=== PATIENT | female | born 1965 | race Caucasian/White ===

== ENCOUNTER 2024-09-16 12:53 | Outpatient (AMB) | payer MEDICAID, SELFPAY ==
--- NOTE | 2024-09-16 12:57 | MHC.OFFVIS ---
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 Reports she drops a lot of things and even writing is painful. She reports numbness and tingling in her right hand 1st, 2nd, 3rd, and 4th digits but states this is not as often as the left. Reports finger locking and cramping in the left hand. Has tried braces but found no relief. Hx of injections on [facility] in the volar aspect of the left wrist. Has tried Tylenol and ibuprofen with no relief. She says her muscle relaxers help her temporarily. Denies any prior injuries the hands. hx of surgery in her left 5th digits for tendons 2015. She was going to therapy for this but then moved to [place]. She returned for treatment due to them not helping her much. 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 Of note, the patient states that she does have a history of flexor tendon repair in 2016, and states that she has not been able to fully straight in her left small finger since then. Patient reports that this numbness and tingling is in all digits of the bilateral hands. Patient had an EMG and nerve conduction study performed years ago, but is not able to bring up the results at this time. Patient does report that she does occasionally have shooting pains that radiate from her elbow down to her hand. No other acute complaints or concerns at this time. [facility] Social History (Updated 09/16/24 @ 13:00 by WILLOW Clark) Alcohol intake: current Alcohol intake frequency: holidays/special occasions only Patient Tobacco Use Status: Current everyday Tobacco user Tobacco use type: Cigarette Current occupational status: unemployed Current occupation: left hand dominant Physical Exam Vital Signs: BMI result Body Mass Index 23.6 Extrem Other: Neuro: Decreased sensation in all digits of the left hand at this time Patient reports normal sensation of the tips of all digits of the right hand at this time No thenar or intrinsic wasting. Good APB muscle firing We can finger cross on the left when compared to the right Vascular: Capillary refill brisk. ROM: Patient can make a fist Patient is unable to actively extend the left small finger at the PIP joint, with a resting extensor lag of approximately 30 degrees Patient is able to be passively extended fully without difficulty Skin: No lacerations or abrasions noted. General: No ecchymosis. No erythema or evidence of infection. Assessment & Plan Assessment & Plan (1) Numbness and tingling in both hands: Code(s): R20.0 - Anesthesia of skin; R20.2 - Paresthesia of skin Category: Medical (2) Flexion contracture of joint of hand: Code(s): M24.549 - Contracture, unspecified hand Category: Medical Plan 1. Numbness and tingling of bilateral hands Symptoms constant, daily, worse at night Patient was referred for EMG and nerve conduction study to assess the health of the nerves of bilateral upper extremities Patient will follow-up after EMG and nerve conduction study for results review and discussion of further treatment options if indicated Patient was amenable to this plan 2. Extensor lag of left small finger status post flexor tendon repair DOS 2015 Patient was referred to occupational therapy for range of motion and strengthening of bilateral hands, particularly the left small finger Patient was advised that if 2-3 months after starting occupational therapy she notices no improvement, she can call for reassessment of her left small finger Patient is amenable to this Patient will follow-up as needed with any acute concerns Orders: Orders NE electromyogram (EMG) Today R20.0 - Anesthesia of skin, R20.2 - Paresthesia of skin NE nerve conduction velocity Today R20.0 - Anesthesia of skin, R20.2 - Paresthesia of skin OT Evaluation and Treatment Today M24.549 - Contracture, unspecified hand Coding Level of Care Code New Pt Level 3 (44224) Diagnoses Numbness and tingling in both hands R20.0; R20.2 Flexion contracture of joint of hand M24.775
[2024-09-16 12:58] VITALS: BMI 23.6
== END 2024-09-16 13:21 | disposition home or self-care (01) ==
LOC: HO.HOS 12:53
PROVIDERS: PCP Physician Assistant Medical
DX: R20.0 Anesthesia of skin (principal); R20.2 Paresthesia of skin; M24.549 Contracture, unspecified hand
CPT/HCPCS: 99203

== ENCOUNTER → 2024-09-16 12:53 | Outpatient (BNVA) | payer MEDICAID, SELFPAY | PROVIDERS: PCP Physician Assistant Medical | DX: M24.549 Contracture, unspecified hand (principal); R20.0 Anesthesia of skin; R20.2 Paresthesia of skin | CPT/HCPCS: 99212 ==

== ENCOUNTER 2024-11-07 13:32 | Outpatient (RCR) | payer MEDICAID, SELFPAY ==
--- NOTE | 2024-10-08 10:08 | MHC.OT.OEV ---
[address] [phone] F: [phone] Occupational Therapy Evaluation Patient Name: Sonali Hernandez Diagnosis: (L)SF flexion contracture, (B)CTS Date of Onset: Date of Surgery: Attending Provider: Dung Dao Prescribed Treatment: MD Follow Up Appointment: History of Current Condition: Patient is a 59 year old left hand dominate female with PMHx of DMII and flexion tendon repair (2015) who was referred to skilled OT for pain and numbness in the hands. Patient stated her main concern is the SF contracture. After her repair she moved to [place] where it was not addressed. Her daughter was present during the evaluation who interpret for the patient. 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 She stated she lives with daughter and PLOF was (I)ADLS/IADLS. She is currently retired. She enjoys cooking. She reported she has difficulty with cooking/cleaning, holding items as she drops items, donning pants, opening jars, and lifting a gallon of milk. She has numbness/tingling at morning and night and notices swelling of her hands at times. She has a brace for nigh time use but she does not use it all the time as it bothers her. She stated it is a throbbing pain that is a 7/10 with movement, no pain at rest but her hands feel numb. Significant Medical History: DM II Precautions/Contraindications: Patient Goals: Hand Dominance: Left Observations: QuickDASH Score: Prior Level of Function and Occupation Self Care, Employment, Leisure: (I)ADLs/ IADLS retired enjoys cooking Living Situation, Family and/or Social Support: Lives with daughter Current Level of Function and Occupation Self Care, Employment, Leisure: min (A)ADLs/IADLs Sleep: Has difficulty sleeping due to pain Driving: Does not drive Vision: Balance: Pain Assessment Pain Score: 7 Pain Scale Used: Numeric (0 - 10) Pain Location and Description: Throbbing pain 7/10 during movement 0/10 at rest Aggravating Factors: Lifting, pushing, pulling Alleviating Factors: Skin and Soft Tissue Assessment Skin and Soft Tissue: Comments: skin intact Nerve assessment Ulnar Nerve: Median Nerve: Radial Nerve: Comments: Sensory Assessment Temperature: B/L Impaired Light Touch: B/L Impaired Proprioception: Vibration: Comments: [place] Jameel Monofilament= Loss of protective sensation Edema Assessment Upper Extremity: Lower Extremity: Comments: Dexterity Assessment Dexterity: Comments: Special Tests Comments: Phalen's Test - unable to perform AROM(PROM) Strength Cervical Cervical Flexion: Cervical Extension: Cervical Lateral Flexion: Cervical Rotation: Comments: Shoulder Flexion: Extension: Abduction: Internal Rotation: External Rotation: Comments: WFL Flexion: Extension: Abduction: Internal Rotation: External Rotation: Comments: Elbow Flexion: Extension: Pronation: Supination: Comments: WFL Flexion: Extension: Pronation: Supination: Comments: Wrist Flexion: (R)89 (L)80 Extension: (R)45 (L)55 Ulnar Deviation: (R)15 (L)11 Radial Deviation: (R)31 (L)30 Comments: Flexion: Extension: Ulnar Deviation: Radial Deviation: Comments: Thumb Thumb CMC Flexion: Thumb MCP Flexion: Thumb IP Flexion: Radial Abduction: Palmar Abduction: [place] (Kapandji 0-10): Comments: Digits Index MCP: PIP: DIP: Long MCP: PIP: DIP: Ring MCP: PIP: DIP: Small MCP: (L)60* flexion passive, hyperextended PIP: (L)51/71 flexion, 45/0 extension DIP: (L)WFL Comments: Gross Grasp: (R)23.5lbs., (L)17.5lbs. Lateral Pinch: (R)6 (L)4 Two-Point Pinch: (R)2 (L)1 Three-Jaw Shola: (R)3 (L)3 Comments: Patient Education Primary Language: Resident Care Manager Rn Required: Yes Current Knowledge: Teaching Method: Education Needs Identified on Evaluation: How did patient/family demonstrate learning? Barriers to Learning: Readiness for Learning: Who was educated? Comments: Daughter aerial photograph interpreter Plan of Care Assessment: Based on initial OT evaluation patient presents with pain, numbness/tingling, impaired ROM, impaired strength, and impaired sensation. Provocative testing was administered however patient was unable to perform it as she was unable to feel sensation. Currently as signs/ symptoms present it is evident that patient has CTS (B'ly). Quick DASH score= 90.0% indicating patients perception of UE impairment during self care tasks. Due to the documented impairments it is recommended patient receive skilled OT intervention in order to achieve her maximal potential and her PLOF of (I) during self care tasks. Per patient discussion the SF contracture will be addressed first and CTS will be addressed second. Thank you for your referral. STG Duration: 2 weeks Short Term Goals: Patient will tolerate at least 8hours of wearing finger orthotic for improved ROM Patient will increase (L)SF PIP extension by 5* Patient will increase (L)SF MCP flexion by 5* Patient will report decreased pain in (L)hand from 7/10 to 5/10 pain Patient will have decreased Quick DASH score by 20% indicating overall improved UE function LTG Duration: 4 weeks [facility] Goals: Patient will report 0/10 pain Patient will increase SF ROM by at least 10* Patient will be (I) with HEP Patient will have decreased Quick DASH score by 50% indicating overall improved UE function Frequency and Duration: The patient will be seen 2x a week for 4weeks Treatment Plan: Therapeutic Exercise Therapeutic Activity Home Exercise Program Splinting Patient Education Edema Control ADL Training Ultrasound NMES Iontophoresis Paraffin Fluidotherapy MHP Cold Packs Joint Mobilization Soft Tissue Mobilization Kinesiotaping Other (see comments) Skilled OT eval and treat Electronically Signed By: BRITTANY Savage/Radha, CLT Reviewed/agree with student documentation: Therapist: Please sign and return to therapist, Thank you for your referral.
--- NOTE | 2025-02-21 15:13 | MHC.OT.DC ---
[address] [phone] F: [phone] Occupational Therapy Discharge Note Patient Name: Sonali Hernandez Provider: Dung Dao Diagnosis: (L)SF flexion contracture, (B)CTS Date of Surgery: Date of Evaluation: 10/07/24 Date of Discharge: Treatments to Date: 3 Cancellations to Date: No Shows to Date: Discharge Status: Visit Non-compliance Discharge Summary: Patient did not return to therapy. Electronically Signed By: BRITTANY Savage/Radha, CLT Reviewed/agree with student documentation: Therapist: Please Sign and return to therapist, thank you for your referral.
== END 2025-02-21 15:13 | disposition home or self-care (01) ==
LOC: HO.OT 13:32
PROVIDERS: PCP Physician Assistant Medical
DX: M24.549 Contracture, unspecified hand (principal)
CPT/HCPCS: 97110; 97140; 97166; 97535

== ENCOUNTER 2024-11-14 13:55 | Outpatient (REF) | payer MEDICAID, SELFPAY ==
--- NOTE | 2024-11-14 14:00 | EMG_ITS ---
Chief complaint: Chronic hand numbness. History of left CTR many years ago. Reason for referral: Evaluate for Carpal Tunnel Syndrome Referred by: Dung PENG Procedure done: Bilateral upper extremities NCS/EMG Precautions and/or limitations: None The limb temperature was monitored continuously and remained between 32-36 degrees C during the performance of the NCS. Nerve Conduction Studies Anti Sensory Summary Table ?Stim Site NR Onset (ms) Norm Onset (ms) Peak (ms) Norm Peak (ms) O-P Amp (?V) Norm O-P Amp Site1 Site2 Delta-0 (ms) Dist (cm) Michael (m/s) Norm Michael (m/s) Left Median Anti Sensory (2nd Digit) Wrist ? 2.9 3.6 <3.6 57.3 >10 Wrist 2nd Digit 2.9 14.0 48 Right Median Anti Sensory (2nd Digit) Wrist ? 3.0 3.9 <3.6 55.9 >10 Wrist 2nd Digit 3.0 14.0 47 Left Radial Anti Sensory (Thumb) Forearm ? 2.3 2.5 <3.1 14.2 Forearm Thumb 2.3 0.0 Left Ulnar Anti Sensory (5th Digit) Wrist ? 3.1 3.9 <3.7 26.7 >15.0 Wrist 5th Digit 3.1 14.0 45 Right Ulnar Anti Sensory (5th Digit) Wrist ? 3.0 3.7 <3.7 41.1 >15.0 Wrist 5th Digit 3.0 14.0 47 Motor Summary Table ?Stim Site NR Onset (ms) Norm Onset (ms) O-P Amp (mV) Norm O-P Amp iAmp (mV) Amp (1st) (%) Site1 Site2 Delta-0 (ms) Dist (cm) Michael (m/s) Norm Michael (m/s) Left Median Motor (Abd Poll Brev) Wrist ? 3.9 <3.9 7.0 >4.5 8.7 100.0 Elbow Wrist 3.7 17.0 46 >45 Elbow ? 7.6 6.8 8.2 97.1 Right Median Motor (Abd Poll Brev) Wrist ? 3.9 <3.9 8.8 >4.5 10.4 100.0 Elbow Wrist 3.7 18.0 49 >45 Elbow ? 7.6 8.7 10.3 98.9 Left Ulnar Motor (Abd Dig Minimi) Wrist ? 3.0 <3.0 8.5 >5 10.8 100.0 B Elbow Wrist 3.3 18.0 55 >45 B Elbow ? 6.3 7.0 9.4 82.4 A Elbow B Elbow 1.6 10.0 62 >45 A Elbow ? 7.9 6.6 9.2 77.6 Right Ulnar Motor (Abd Dig Minimi) Wrist ? 3.0 <3.0 10.0 >5 12.6 100.0 B Elbow Wrist 3.3 18.0 55 >45 B Elbow ? 6.3 9.9 12.5 99.0 A Elbow B Elbow 1.5 10.0 67 >45 A Elbow ? 7.8 9.3 12.1 93.0 EMG ?Side Muscle Nerve Root Ins Act Fibs Psw Amp Dur Poly Recrt Int Pat Comment Right 1stDorInt Ulnar C8-T1 Nml Nml Nml Nml Nml 0 Nml Complete Right FlexCarRad Median C6-7 Nml Nml Nml Nml Nml 0 Nml Complete Right Biceps Musculocut C5-6 Nml Nml Nml Nml Nml 0 Nml Complete Right Triceps Radial C6-7-8 Nml Nml Nml Nml Nml 0 Nml Complete Right Deltoid Axillary C5-6 Nml Nml Nml Nml Nml 0 Nml Complete Left 1stDorInt Ulnar C8-T1 Nml Nml Nml Nml Nml 0 Nml Complete Left FlexCarRad Median C6-7 Nml Nml Nml Nml Nml 0 Nml Complete Left Biceps Musculocut C5-6 Nml Nml Nml Nml Nml 0 Nml Complete Left Triceps Radial C6-7-8 Nml Nml Nml Nml Nml 0 Nml Complete Left Deltoid Axillary C5-6 Nml Nml Nml Nml Nml 0 Nml Complete FINDINGS: All motor and sensory nerves tested showed normal latencies, amplitudes and conduction velocities. Concentric needle EMG was performed in selected muscles of the bilateral upper extremities. Study did not reveal signs of electric abnormalities as shown in the table above. IMPRESSION: 1. This is a normal study. 2. There is no electrodiagnostic evidence for median neuropathy, ulnar neuropathy, brachial plexopathy, or cervical radiculopathy. Thank you for your kind referral. Nancie Marie MD, JUAN RAMON Board Certified, [place] Board of Physical Medicine and Rehabilitation (ABPMR) Board Certified, [place] Board of Electrodiagnostic Medicine (ABEM) CODIN [phone] NATALIE
== END 2024-11-14 13:56 | disposition home or self-care (01) ==
LOC: HO.NEURO 13:55
PROVIDERS: PCP Physician Assistant Medical
DX: R20.0 Anesthesia of skin (principal); R20.2 Paresthesia of skin
CPT/HCPCS: 95886; 95911

== ENCOUNTER → 2024-11-14 14:00 | Outpatient (BNV) | payer MEDICAID, SELFPAY | PROVIDERS: PCP Physician Assistant Medical; Visit Provider Physical Medicine & Rehabilitation | DX: R20.0 Anesthesia of skin (principal); R20.2 Paresthesia of skin | CPT/HCPCS: 95886; 95911 ==

== ENCOUNTER 2024-12-18 14:05 | Outpatient (AMB) | payer MEDICAID, SELFPAY ==
--- NOTE | 2024-12-18 14:06 | MHC.OFFVIS ---
Intake Visit Reasons: Tel- B/L UE EMG review pls call [phone] Intake Note: Sonali is a 59 year old left hand dominant female who presents today via telephone visit for her bilateral hand EMG review. Allergies No Known Allergies Allergy (Verified 12/18/24 14:11) HPI HPI Tel- B/L UE EMG review pls call [phone]: Details: pavel is a 59 year old left hand dominant female who presents today via telephone visit for her bilateral hand EMG review. PFSH Social History Alcohol intake: current Alcohol intake frequency: holidays/special occasions only Patient Tobacco Use Status: Current everyday Tobacco user Tobacco use type: Cigarette Current occupational status: unemployed Current occupation: left hand dominant Review of Systems Const All systems reviewed & are unremarkable except as noted in HPI and below Telehealth Telehealth Telehealth Platform: Telephone Location of provider rendering services: practice address Location of patient: address on file Patient Identification confirmed using: Name, : Yes Telehealth method: voice only Patient verbally consented to treatment: Yes Patient verbally consented to billing insurance company: Yes Patient informed of any privacy concerns related to visit: Yes Minutes spent on Phone/Video with Pt.: 10 Assessment & Plan Assessment & Plan (1) Numbness and tingling in both hands: Code(s): R20.0 - Anesthesia of skin; R20.2 - Paresthesia of skin Category: Medical Plan 1. Numbness and tingling of both hands Intermittent, daily, worse at night EMG negative Patient informed that there is no intervention indicated with a negative EMG Patient can f/u in 6 mos if she is still experiencing numbness and tingling for repeat EMG Patient is amenable to this plan Coding Level of Care Code Tele New Pt Level 3 (26967) Diagnoses Numbness and tingling in both hands R20.0; R20.2
--- OUTSIDE RECORDS SUMMARY | 2024-12-18 15:30 | XMS_ITS | Clinical Summary ---
Author Organization [facility] Address [address] [place] [address] Care Team Providers Care Escalator Operator Name Role Phone Alice Gan PA-C Primary Care Provider Source Comments PLEASE NOTE, if this patient is a minor, it may be UNLAWFUL to discuss sensitive information that is contained in these records (such as FAMILY PLANNING, MENTAL HEALTH or SUBSTANCE ABUSE) with the minor patient's parent or other person without the patient's specific authorization.[facility] Allergies No known active allergies Medications arm brace (WRIST BRACE)Indication s:Acute carpal tunnel syndrome of left wrist Left hand carpel tunnel - wrist brace to wear daily 1 Each 9 Active omeprazole (PRILOSEC) [address] capsuleIndicatio ns:Gastroesophag eal reflux disease, unspecified whether esophagitis present TAKE 1 CAPSULE BY MOUTH EVERY MORNING BEFORE BREAKFAST DO NOT CRUSH OR CHEW. 90 Capsule 1 4 Active metroNIDAZOLE (FLAGYL) 500 mg tabletIndication s:BV (bacterial vaginosis) Take 1 Tablet by mouth 2 (two) times daily Avoid alcohol consumption during treatment and 48 hours post treatment. 14 Tablet 4 Active cyclobenzaprine (FLEXERIL) 10 mg tabletIndication s:Back spasm Take 1 Tablet by mouth 3 (three) times daily as needed for muscle spasms 60 Tablet 4 Active ibuprofen 600 mg tabletIndication s:Back spasm Take 1 Tablet by mouth 4 (four) times daily as needed for pain 60 Tablet 4 Active metFORMIN (GLUCOPHAGE) 500 mg tabletIndication s:Prediabetes Take 1 Tablet by mouth once daily with breakfast 90 Tablet 1 4 Active Active Problems Problem Noted Date Diagnosed Date Tubular adenoma of colon 07/28/2016 Overview (02/13/2024): repeat screening colonoscopy in 2020 Prediabetes 04/21/2016 Overview (05/25/2016): No showed Rose May 2016 Dyslipidemia 04/08/2016 Overview (04/08/2016): Lab Results Component Value Date TRIGLYC 207* 04/08/2016 CHOL 208* 04/08/2016 HDL 57 04/08/2016 LDL 110* 04/08/2016 Diet ed only- no meds for now Hepatitis B antibody positive 04/08/2016 Liver cyst 04/07/2016 GERD (gastroesophageal reflux disease) 6 Overview (04/07/2016): ppi prn- did not re order this upon transfer Overweight 04/07/2016 Overview (05/25/2016): No showed rose May 2016 Menopause 04/07/2016 Overview (04/07/2016): Age 48 per pt Carpal tunnel syndrome 09/02/2015 Overview (04/07/2016): neos repaired 2-3 yr ago- had EMG sched per yvon notes H/O mammogram Overview (04/07/2016): sage birads -2 09/28/15 Pap smear for cervical cancer screening Overview (04/07/2016): 09/02/15 nil with ECc hpv neg next pap due 08/2020 H/O colonoscopy Overview (08/31/2016): 07/26/16- colonoscopy Repeat in 5 yr- +13mm polyp removed REPEAT DUE 07/202106/02/16 saw GINETTE Pinto- plan 07/26/[address] Bernstein Ref made April 2016 has not had- would like. no s/s brother with colon cancer-age- 44 yr BETH (headache) Overview (04/07/2016): occur 3-4 x monthly- rel with tylenol Blurred vision Overview (04/07/2016): last eye exam long ago has glasses Pleural mass Overview (07/08/2016): 06/16/16 d/bo from hospital after rescetion done; has follow up 06/[address] Monahan 05/30/16 saw thoracic surg- Alva Monahan-pt has a RL mass- that is small- plan a VATS resection of this mass- surgeon anticipates resecting a small swathof pleura surrounding stalk- plan bronchoscopy- followd by a right video assisted thorascopic resection of the mass and frozen section of the mass Pt scheduled for PFT on 05/12/16 and once they get those results they will scheduled appt rec report - ref to thor surg per recommendations 04/21/[address] may 2016- 6 mon Follow up -------had CT 11/09/15 - sage Tobacco abuse Overview (04/07/2016): onset age 10, smokes 3 daily Esophageal reflux Overview (04/07/2016): ppi on occassion- did not re order- Immunizations Name Administration Dates Next Due Flu, Preservative Free 09/21/2020 Influenza (FLUBLOK),recombinant,injectable,preservative Free 07/16/2024 Moderna COVID-19 Vaccine, re d cap blue label, 12+ Primary Series 02/06/2021,01/09/2021 PNEUMOCOCCAL CONJUGATE PCV 20 (Prevnar) 07/16/20 24 PNEUMOCOCCAL POLYSACCHARIDE PPV23 09/21/2020 TDAP 06/16/2020 ZOSTER VACCINE, RECOMBINANT (SHINGRIX) 0,06/16/2020 Family History Medical History Relation Name Comments Stroke Brother 1 Cancer Brother 2 brain Cancer Brother 7 colon Cancer Father pancreas Diabetes Mother Heart Problems Mother Diabetes Sister 1 Heart Problems Sister 1 Hypertension Sister 1 Diabetes Sister 2 Heart Problems Sister 2 Hypertension Sister 2 Relation Name Status Comments Brother 1 Brother 2 Brother 3 Alive Brother 4 Alive Brother 5 Alive Brother 6 Alive Brother 7 Alive Father Mother Sister 1 Alive Sister 2 Alive Sister 3 well Alive Social History Tobacco Use Types Packs/Day Years Used Date Smoking Tobacco: Every Day Cigarettes Smokeless Tobacco: Never Tobacco Cessation:Ready to Q uit: No; Counseling Given: Yes Comments:About 3 a day Alcohol Use Standard Drinks/Week Comments Yes 0 (1 standard drink = 0.6 oz pur e alcohol) soc Social Connections Answer Date Recorded Connectedness 1 07/16/2024 Financial Resource Strain Answer Date R ecorded Financial Resource Strain 1 2023 Stress Answer Date Recorded Stress 1 07/16/2024 Physical Activity Answer Date Recorded Physical Activity 0 06/30/2019 Food Insecurity Answer Date Recorded Food 1 07/16/2024 Transportation Needs Answer Date Record ed Transportation 1 07/16/2024 Housing Stability Answer Date Recorded Housing 1 07/16/2024 Safety and Environment Answer Date Marvel rded Safety 1 02/13/2024 Utilities Answer Date Recorded Utilities 1 07/16/2024 Employment Answer Date Recorded Stress 0 02/13/2024 Comments No Sex and Gender Information Value Date Recorded Sex Assigned at Female 08/20/2018 8:38 AM PDT Legal Sex Female 8:34 AM PDT Gender Identity Female 08/20/2018 8:38 AM PDT Sexual Orientation Straight 02/13/2024 6: 13 AM PDT 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 Not on file Not on file Not on file Last Filed Vital Signs Vital Sign Reading Time Taken Comments Blood Pressure 126/84 09/12/2024 10:54 AM EST Pulse 78 09/12/2024 10:54 AM EST Temperature 36.6 ??C (97.8 ??F) 09/12/2024 10:[address] Respiratory Rate 16 09/12/2024 10:54 AM EST Oxygen Saturation 97% 09/12/2024 10:54 AM EST Inhaled Oxygen Concentration - - Weight 59 kg (130 lb) 09/12/2024 10:54 AM EST Height 157.5 cm (5' 2 ) 09/12/2024 10:54 AM EST Body Mass Index 23.78 09/12/2024 10:54 AM EST Plan of Treatment Upcoming Encounters Date Type Department Care Team (Late st Contact Info) Description 01/28/2025 1:40 PM EDT Office Visit [facility] [address] [place] [phone] Filiberto Ferguson, [facility] [address] [place] [address] Health Maintenance Due Date Last Done Comments CT Colonography 2009 FIT/gFOBT 2009 Fecal DNA 2009 Flexible Sigmoidoscopy 2009 Dental Perio Charting 11/04/2024 11/02/2023 Alcohol and Drug Screen 11/06/2024 07/16/20, 02/13/2024, 01/07/2021, Additional history exists Depression Annual Screen 11/06/2024 07/16/2024 Breast Cancer Screening (Mammogram) 03/04/2025 03/04/2024, 03/04/2024, 09/28/2015 [id number] ( season) 2025 02/06/2021, 01/09/2021 Postponed from 07/07/2024 (Patient postponement) Dental BW 08/01/2025 07/30/2024, 11/02/2023 Dental Examination 08/01/2025 07/30/2024, 11/02/2023 Dental Prophy 08/01/2025 07/30/2024, 11/02/2023 Annual Preventive Care Visit 08/05/2025 08/05/2024, 07/16/2024, 09/21/2020 Cervical Cancer Screening 08/05/2025 Pap + HPV 08/05/2025 08/05/2024, 09/02/2015 Diabetes Screening 09/12/2025 09/12/2024, 1 11/12/2023, 02/13/2024, Additional history exists Hypertension Screening (#1) 09/12/2025 Tobacco Cessation Counseling (#1) 09/12/2025 Colonoscopy 07/26/2026 07/26/2016 Colorectal Cancer Screening 07/26/2026 Pap Smear 08/05/2027 08/05/2024, 09/22/2020 Dental FMX/Pano 11/04/2028 11/02/2023 HPV Screening 08/05/2029 08/05/2024 Lipid Screening 09/12/2029 09/12/2024, 04/0 07/2024, 06/16/2020, Additional history exists Imm-DTaP/Tdap/Td (2 - Td or Tdap) 06/16/2030 06/16/2020 Hepatitis C Screening Completed 04/08/2016 HIV Screening Completed 06/16/2020, 04/08/2016 Imm-Zoster, Recombinant Completed 09/21/2020, 06/16 Imm-Influenza Completed 07/16/2024, 09/21/2020 Imm-Pneumococcal Completed 07/16/2024, 09/21/2020 HPV Genotyping Discontinued 08/05/2024 Cervical Ablation/Cold-Knife Conization Discontinued Cervical Cryotherapy Discontinued Colposcopy Discontinued Endometrial Biopsy Discontinued Excision/Leep Discontinued Imm-Hepatitis B Discontinued Vaginal Pap Discontinued Vulvoscopy Discontinued Procedures Procedure Name Priority Date/Time Associated Diagnosis Comments OTHER ORDERS SCANNED DOCUMENT 10/17/2024 3:00 AM EST OTHER ORDERS SCANNED DOCUMENT 10/08/2024 3:00 AM EST HEMOGLOBIN GLYCOSYLATED A1C Routine 09/12/2024 11:10 AM EST Prediabetes LIPID PANEL Routine 09/12/2024 11:10 AM EST Dyslipidemia Prediabetes HPV KUN 16/18 + 45 Routine 08/05/2024 2 :34 PM EDT Pap smear, as part of routine gynecological examination THIN PREP IMAGE PAP + HPV RNA E6/E7 W/RFLX HPV 16, 18/45 Routine 08/05/2024 2:34 PM EDT Pap smear, as part of routine gynecological examination Cervical cancer screening BITEWINGS - FOUR RADIOGRAPHIC IMAGES Routine 07/30/2024 9:00 AM EDT Encounter for dental examination PROPHYLAXIS - ADULT Routine 07/30/2024 9 :00 AM EDT Encounter for dental examination PERIODIC ORAL EVALUATION ESTABLISHED PATIENT Routine 07/30/2024 9:00 AM EDT Encounter for dental examination REFERRAL FOR MAMMOGRAM Routine 03/04/2024 3:00 AM EDT Breast cancer screening by mammogram COMP PERIODONTAL EVALUATION - NEW/EST PATIENT Routine 11/02/2023 1:00 PM EST Dental caries on smooth surface penetrating into pulp Encounter for dental examination and cleaning with abnormal findings 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 periodontitis per AAP/EFP 2017 classification INTRAORAL - COMP SERIES OF RADIOGRAPHIC IMAGES Routine 11/02/2023 1:00 PM EST Dental caries on smooth surface penetrating into pulp Encounter for dental examination and cleaning with abnormal findings 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 periodontitis per AAP/EFP 2017 classification ANTIBODY HIV-1&HIV-2 SINGLE RESULT Routine 06/16/2020 4:01 PM EDT Encounter for screening for HIV HEPATITIS A,B,C PANEL Routine 04/08/2016 11:13 AM EDT Routine health maintenance Screening examination for venereal disease from Last 3 Months or Most Recently Relevant to Health Maintenance Results * OTHER ORDERS SCANNED DOCUMENT (10/17/2024 3:00 AM EST) Only the most recent of2 resultswithin the time period is included. 10/17/2024 3:00 AM EST us Alice Gan PA-C SCAN OTHER ORDERS Final Resu lt * (ABNORMAL) HEMOGLOBIN GLYCOSYLATED A1C (09/12/2024 11:10 AM EST) HEMOGLOBIN A1C 6.2(H) <5.7 % of total Hgb [employer] [facility] Comment: For someone without known diabetes, a hemoglobin A1c value between 5.7% and 6.4% is consistent with prediabetes and should be confirmed with a follow-up test. For someone with known diabetes, a value <7% indicates that their diabetes is well controlled. A1c targets should be individualized based on duration of diabetes, age, comorbid conditions, and other considerations. This assay result is consistent with an increased risk of diabetes. Currently, no consensus exists regarding use of hemoglobin A1c for diagnosis of diabetes for children. Blood Blood / Unknown 09/12/2024 1 1:10 AM EST 09/12/2024 11:10 AM EST Narrative [facility] - 09/13/2024 5:56 AM EST FASTING:NO us Alice Gan PA-C LAB - BLOOD DRAW Edited Resu lt - Final [employer] [address] [address], [employer] [facility] [address] [place] [address] * (ABNORMAL) LIPID PANEL (09/12/2024 11:10 AM EST) CHOLESTEROL, TOTAL 203(H) <200 mg/dL [facility] HDL CHOLESTEROL 51 > OR = 50 mg/dL [facility] TRIGLYCERIDES 232(H) <150 mg/dL [facility] Comment: If a non-fasting specimen was collected, consider repeat triglyceride testing on a fasting specimen if clinically indicated. Galo et al. J. of Clin. Lipidol. 2015;9:129-169. LDL-CHOLESTEROL 117(H) 99 mg/dL (calc) [facility] Comment: Reference range: <100 Desirable range <100 mg/dL for primary prevention; ?? <70 mg/dL for patients with CHD or diabetic patients with > or = 2 CHD risk factors. LDL-C is now calculated using the Kash-Arora calculation, which is a validated novel method providing better accuracy than the Friedewald equation in the estimation of LDL-C. Kash SS et al. SHANAE. 2013;310(19): 5585-0531 (http://education.Proteopure/faq/GWJ274) CHOL/HDLC RATIO 4.0 <5.0 (calc) [facility] NON-HDL CHOLESTEROL 152(H) <130 mg/dL (calc) [facility] Comment: For patients with diabetes plus 1 major ASCVD risk factor, treating to a non-HDL-C goal of <100 mg/dL (LDL-C of <70 mg/dL) is considered a therapeutic option. Blood Blood / Unknown 09/12/2024 1 1:10 AM EST 09/12/2024 11:10 AM EST Narrative [facility] - 09/13/2024 5:56 AM EST FASTING:NO Alice Gan PA-C LAB - BLOOD DRAW Final Resul t Performing Organization Address [facility]/ZIP Co de Phone Number [employer] [facility] [address] [address], [employer] [address] [address] * HPV KUN 16/18 + 45 (08/05/2024 2:34 PM EDT) Pathologist [facility] HPV 16 RNA NOT DETECTED NOT DETECTED [facility] HPV 18/45 RNA NOT DETECTED NOT DETECTED [facility] Comment: Methodology: Milk Receiver Tank Truck Mediated Amplification Cervical sources are required for HPV testing. If a vaginal source from a patient who has had a total hysterectomy with removal of cervix was submitted, please contact the testing laboratory for alternative testing options. 08/05/2024 2:34 PM EDT 08/06/2024 8:53 PM EDT us Alice Gan PA-C LAB - NO BLOOD DRAW Final Re sult Performing Organization Address [facility]/ZIP Co de Phone Number [employer] [facility] [address] [address], [employer] [address] [address] * (ABNORMAL) THIN PREP IMAGE PAP + HPV RNA E6/E7 W/RFLX HPV 16, 18/45 (08/05/2024 2:34 PM EDT) [facility] CLINICAL INFORMATION See Note [facility] Comment: Routine exam Postmenopausal LMP See Note [facility] Comment:NONE GIVEN PREV. PAP [facility] PREV. BX See Note [facility] Comment:NONE GIVEN SOURCE See Note [facility] Comment:Cervix, Endocervix STATEMENT OF ADEQUACY See Note [facility] Comment: Satisfactory for evaluation. Endocervical/transformation zone component present. INTERPRETATION/RESU LT See Note [facility] Comment: Cytology Results: Negative for intraepithelial lesion or malignancy. COMMENT See Note [facility] Comment: This Pap test has been evaluated with computer assisted technology. INFECTION PREVENTION PRACTITIONER See Note [facility] Comment: MRC, CT(ASCP) CT screening location: [address] [address] REVIEW INFECTION PREVENTION PRACTITIONER See Note [employer] [facility] Comment: RXB, CT(ASCP) CT screening location: [address] ??[address] COMMENT [employer] [facility] HPV MRNA E6/E7 Detected (A) Not Detected [employer] [facility] Comment: Methodology: Milk Receiver Tank Truck-Mediated Amplification This assay detects E6/E7 viral messenger RNA (mRNA) from 14 high-risk HPV types (16,18,31,33,35,39,45,51,52,56,58,59,66,68). Cervical sources are required for HPV testing. If a vaginal source from a patient who has had a total hysterectomy with removal of cervix was submitted, please contact the testing laboratory for alternative testing options. For additional information, please refer to http://education.Beamz Interactive/faq/SEP621b1 (This link if provided for information/ educational purposes only.) Swab Endocervical structure / Unknown 08/05/2024 2:34 PM EDT 08/06/2024 8:53 PM EDT Narrative [employer] - 08/09/2024 12:09 AM EDT EXPLANATORY NOTE: The Pap is a screening test for cervical cancer. It is not a diagnostic test and is subject to false negative and false positive results. It is most reliable when a satisfactory sample, regularly obtained, is submitted with relevant clinical findings and history, and when the Pap result is evaluated along with historic and current clinical information. us Alice Gan PA-C LAB - NO BLOOD DRAW Final Re sult [facility] [address] [place] [address], [employer] [address] [address] * REFERRAL FOR MAMMOGRAM (03/04/2024 3:00 AM EDT) 03/04/2024 3:00 AM EDT us Alice Gan PA-C IMG RFL MAMMO Final Result * HIV-1 & HIV-2 ANTIBODIES (06/16/2020 4:01 PM EDT) HIV 1 AND 2 ANTIBODY SCREEN NEGATIVE NEGATIVE [facility] Comment: This assay is a 4th generation assay allowing for earlier detection of HIV infection by detecting the presence of the HIV-1 p24 antigen as well as the traditional antibodies to HIV type 1 (including group O) and type 2. ??Use of a 4th generation assay is the current CDC recommendation for HIV screening. Blood specimen (specimen) Blood / Unknown 06/16/2020 4:01 PM EDT 06/16/2020 6:35 PM EDT Narrative [facility] - 06/16/2020 8:13 PM EDT [email or web address], [place] [address] Skoog Machine Operator - Mary Curiel MD PT ID [id number] ORD# [id number] Alice Gan PA-C LAB - BLOOD [place] [address], * (ABNORMAL) HEPATITIS A,B,C PANEL (04/08/2016 11:13 AM EDT) HEPATITIS B SURFACE ANTIBODY POSITIVE(A) NEGATIVE [facility] HEPATITIS B SURFACE ANTIGEN NEGATIVE NEGATIVE [facility] HEPATITIS C VIRUS DIAGNOSTIC NEGATIVE NEGATIVE [facility] HEPATITIS A ANTIBODY TOTAL POSITIVE(A) NEGATIVE [facility] HEPATITIS B CORE ANTIBODY POSITIVE(A) NEGATIVE [facility] Blood specimen (specimen) Blood / Unknown 04/08/2016 11:13 AM EDT 04/08/2016 11:29 AM EDT Narrative [facility] - 04/08/2016 4:58 PM EDT [email or web address] [address] [place] [address] PT ID [id number] ORD# [id number] Siobhan Pollack ANP LAB - BLOOD DRAW Edited Resul t - Final [facility] [address] [place] [address], from Last 3 Months or Most Recently Relevant to Health Maintenance Insurance [id number] [facility] [employer] [employer]CO CT MEDICAID DENTAL HEALTH SAFETY NET DENTAL Care Teams Escalator Operator Relationship Specialty Start Date End Date Alice Gan PA-C [address] [place] [address] PCP - General FAMILY MEDICINEGINETTE 05/20/20
== END 2024-12-18 14:10 | disposition home or self-care (01) ==
LOC: HO.HOS 14:05
PROVIDERS: PCP Physician Assistant Medical
DX: R20.0 Anesthesia of skin (principal); R20.2 Paresthesia of skin
CPT/HCPCS: 99213

== ENCOUNTER 2025-05-13 10:28 | Outpatient (AMB) | payer MEDICAID, SELFPAY ==
--- NOTE | 2025-05-13 10:36 | MHC.OFFVIS ---
Intake Visit Reasons: OV - Bilateral hand numbness and tingling Intake Note: Sonali is a 59 year old left hand dominant female who presents today for a follow up of her bilateral hand numbness tingling and pain. Patient reports that the pain is now constant and the numbness and tingling have increased. Patient stated that her right hand feels fine that her main concern is the left hand/left pinky finger. She reports that after surgery 10ish years ago the left pinky finger is lifted/stuck. She added that the pain flairs up at night time. Acoustical Tile Drill Press Operator Required: Yes Acoustical Tile Drill Press Operator Services: Acoustical Tile Drill Press Operator Offered & Declined Acoustical Tile Drill Press Operator Name: Tejas - Friend of the family. Allergies No Known Allergies Allergy (Verified 05/13/25 10:42) HPI HPI OV - Bilateral hand numbness and tingling: Details: Sonali is a 59 year old left hand dominant female who presents today for a follow up of her bilateral hand numbness tingling and pain. Patient reports that the pain is now constant and the numbness and tingling have increased. Patient stated that her right hand feels fine that her main concern is the left hand/left pinky finger. She reports that after surgery 10ish years ago the left pinky finger is lifted/stuck. She added that the pain flairs up at night time. [facility] Social History Alcohol intake: current Alcohol intake frequency: holidays/special occasions only Patient Tobacco Use Status: Current everyday Tobacco user Tobacco use type: Cigarette Current occupational status: unemployed Current occupation: left hand dominant Review of Systems Const All systems reviewed & are unremarkable except as noted in HPI and below Physical Exam Extrem Other: Neuro: Decreased sensation in all digits of the left hand at this time Patient reports normal sensation of the tips of all digits of the right hand at this time No thenar or intrinsic wasting. Good APB muscle firing We can finger cross on the left when compared to the right Vascular: Capillary refill brisk. ROM: Patient can make a fist Patient is unable to actively extend the left small finger at the PIP joint, with a resting extensor lag of approximately 30 degrees Patient is able to be passively extended fully without difficulty Skin: No lacerations or abrasions noted. General: No ecchymosis. No erythema or evidence of infection. Assessment & Plan Assessment & Plan (1) Flexion contracture of joint of hand: Code(s): M24.549 - Contracture, unspecified hand Category: Medical (2) Numbness and tingling in both hands: Code(s): R20.0 - Anesthesia of skin; R20.2 - Paresthesia of skin Category: Medical Plan 1. Numbness, tingling, pain of bilateral hands Negative EMG approximately 6 months ago 2. Contracture of left small finger Patient is educated about this condition Patient is educated about the typical treatment course This time, patient is ordered EMG and nerve conduction study to assess the health of the nerves of bilateral upper extremities Patient will follow-up after EMG and nerve conduction study for results review and discussion of further treatment options if indicated OT was ineffective at improving ROM of L SF, we will discuss further treatment options at f/u for EMG and NCS Patient is amenable to this plan Orders: Orders NE electromyogram (EMG) 05/13/25 R20.0 - Anesthesia of skin, R20.2 - Paresthesia of skin NE nerve conduction velocity 05/13/25 R20.0 - Anesthesia of skin, R20.2 - Paresthesia of skin Coding Level of Care Code Est Pt Level 3 (23403) Diagnoses Flexion contracture of joint of hand M24.549 Numbness and tingling in both hands R20.0; R20.2
--- OUTSIDE RECORDS SUMMARY | 2025-05-13 11:27 | XMS_ITS | Clinical Summary ---
Author Organization [facility] Address [address] [place] [address] Care Team Providers Care Community Youth Secretary Name Role Phone Alice Gan PA-C Primary Care Provider [phone] Source Comments PLEASE NOTE, if this patient [...] on occassion- did not re order- Immunizations Immunization Administration Dates Next Due Flu, Preservative Free 09/21/2020 Influenza (FLUBLOK),recombinant,injectable,preservative Free 07/16/2024 Moderna COVID-19 Vaccine, re d cap blue label, 12+ Primary Series 02/06/2021,01/09/2021 PNEUMOCOCCAL CONJUGATE PCV 20 (Prevnar 20) 07/16 PNEUMOCOCCAL POLYSACCHARIDE PPV23 (Pneumovax 23) 09/21/2020 TDAP 06/16/2020 ZOSTER VACCINE, RECOMBINANT (SHINGRIX) [...] alcohol) soc Social Connections Answer Date Recorded How often do you feel lonely or isolated from th ose around you? 1 07/16/2024 Financial Resource Strain Answer Date R ecorded Hard to pay for: Food 1 07/16/2024 Stress Answer Date Recorded Do you feel these kinds of stress these days? 1 07/16/2024 Physical Activity Answer Date Recorded Physical Activity 0 06/30/2019 Food Insecurity Answer Date Recorded Hard to pay for: Food 1 07/16/2024 Transportation Needs Answer Date Record ed Hard to pay for: Transportation 1 07/16/2024 Housing Stability Answer Date Recorded Hard to pay for: Rent/Mortgage payment 1 07/16/2024 Safety and Environment Answer Date Marvel rded Safety 1 02/13/2024 Utilities Answer Date Recorded Hard to pay for: Utilities 1 07/16 Employment Answer Date Recorded Stress 0 02/13/2024 Comments No Sex and Gender Information Value Date Recorded Sex Assigned at Female 08/20/2018 8:38 AM PDT Legal Sex Female 8:34 AM PDT Gender Identity Female 08/20/2018 8:38 AM PDT Sexual Orientation Straight 02/13/2024 6: 13 AM PDT 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 Not on file Not on file Not on file Last Filed Vital Signs Vital Sign Reading Time Taken Comments Blood Pressure 126/84 09/12/2024 10:54 AM EST Pulse 78 09/12/2024 10:54 AM EST Temperature 36.6 C (97.8 F) 09/12/2024 10:54 AM EST Respiratory Rate 16 09/12/2024 10:54 AM EST Oxygen Saturation 97% 09/12/2024 10:54 AM EST Inhaled Oxygen Concentration - - Weight 59 kg (130 lb) 09/12/2024 10:54 AM EST Height 157.5 cm (5' 2 ) 09/12/2024 10:54 AM EST Body Mass Index 23.78 09/12/2024 10:54 AM EST Plan of Treatment Health Maintenance Due Date Last Done Comments CT Colonography 2009 FIT/gFOBT 2009 Fecal DNA 2009 Flexible Sigmoidoscopy 2009 [id number] ( season) 07/07/20242 021, 01/09/2021 Dental Perio Charting 11/04/2024 11/02/2023 Alcohol and Drug Screen 11/06/2024 07/16/20 24, 02/13/2024, 01/07/2021, Additional history exists Depression Annual Screen 11/06/2024 07/16/2024 Breast Cancer Screening (Mammogram) 03/04/2025 03/04/2024, 03/04/2024, 09/28/2015 Imm-Influenza (#1) 2025 07/16/2024, 09/21/2020 Anxiety Screening 07/16/2025 07/16/2024 Dental BW 08/01/2025 07/30/2024, 11/02/2023 Dental Examination 08/01/2025 07/30/2024, 11/02/2023 Dental Prophy 08/01/2025 07/30/2024, 11/02/2023 Annual Wellness (Adult): Indicated (All Coverage) 08/05/2025 08/05/2024, 07/16/2024, 09/21/2020 Cervical Cancer Screening [...] Imm-DTaP/Tdap/Td (2 - Td or Tdap) 06/16/2030 020 Hepatitis C Screening Completed 04/08/2016 HIV Screening Completed 06/16/2020, 04/08/2016 Imm-Zoster, Recombinant Completed 09/21/2020, 06/16 Imm-Pneumococcal 50+ Completed 07/16/2024, 09/21/20 20 HPV Genotyping Discontinued 08/05/2024 Cervical Ablation/Cold-Knife Conization Discontinued Cervical Cryotherapy Discontinued Colposcopy Discontinued Endometrial Biopsy Discontinued Excision/Leep Discontinued Imm-Hepatitis B Discontinued Vaginal Pap Discontinued Vulvoscopy Discontinued Procedures Procedure Name Priority Date/Time Associated Diagnosis Comments HEMOGLOBIN GLYCOSYLATED A1C Routine 09/12/2024 11:10 AM [...] Recently Relevant to Health Maintenance Results * (ABNORMAL) HEMOGLOBIN GLYCOSYLATED A1C (09/12/2024 11:10 AM EST) HEMOGLOBIN A1C 6.2(H) <5.7 % of total Hgb [facility] Comment: For someone without known diabetes, a [...] AM EST 09/12/2024 11:10 AM EST Narrative [facility] - 09/13/2024 5:56 AM EST FASTING:NO us Alice Gan PA-C LAB - BLOOD DRAW Edited Resu lt - Final [facility] [address] [place] [phone], [facility] [address] [place] [phone] * (ABNORMAL) LIPID PANEL (09/12/2024 11:10 AM EST) CHOLESTEROL, TOTAL 203(H) <200 mg/dL [facility] HDL CHOLESTEROL 51 > OR = 50 mg/dL [facility] TRIGLYCERIDES 232(H) <150 mg/dL [facility] Comment: If a non-fasting specimen was collected, consider repeat triglyceride testing on a fasting specimen if clinically indicated. Galo et al. J. of Clin. Lipidol. 2015;9:129-169. LDL-CHOLESTEROL 117(H) 99 mg/dL (calc) [facility] Comment: Reference range: <100 Desirable range <100 mg/dL for primary prevention; <70 mg/dL for patients with CHD or diabetic patients with > or = 2 CHD risk factors. LDL-C is now calculated using the Abiodun calculation, which is a validated novel method providing better accuracy than the Friedewald equation in the estimation of LDL-C. Kash ANSARI et al. SHANAE. 2013;310(19): 4078-0417 (http://education.GoNetYourself/faq/MEL151) CHOL/HDLC RATIO 4.0 <5.0 (calc) [facility] NON-HDL CHOLESTEROL 152(H) <130 mg/dL (calc) [facility] Comment: For patients with diabetes plus 1 major ASCVD risk factor, treating to a non-HDL-C goal of <100 mg/dL (LDL-C of <70 mg/dL) is considered a therapeutic option. Blood Blood / Unknown 09/12/2024 1 1:10 AM EST 09/12/2024 11:10 AM EST Narrative [facility] - 09/13/2024 5:56 AM EST FASTING:NO us Alice Gan PA-C LAB - BLOOD DRAW Final Resul t [facility] [employer] [address] [address], [facility] [address] [phone] * HPV KUN 16/18 + 45 (08/05/2024 2:34 PM EDT) Pathologist [facility] HPV 16 RNA NOT DETECTED NOT DETECTED [facility] HPV 18/45 RNA NOT DETECTED NOT DETECTED [facility] Comment: Methodology: Chemical Tank Worker Mediated Amplification Cervical sources are required for HPV testing. If a vaginal source from a patient who has had a total hysterectomy with removal of cervix was submitted, please contact the testing laboratory for alternative testing options. 08/05/2024 2:34 PM EDT 08/06/2024 8:53 PM EDT Alice Gan PA-C LAB - PATHOLOGY AND CYTOLOGY AMBULATORY Final Result [facility] [address] [place] [address], [facility] [address] [place] [phone] * (ABNORMAL) THIN PREP IMAGE PAP + HPV RNA E6/E7 W/RFLX HPV 16, 18/45 (08/05/2024 2:34 PM EDT) CLINICAL INFORMATION See Note [facility] Comment: Routine exam Postmenopausal LMP See Note [facility] Comment:NONE GIVEN PREV. PAP [facility] PREV. BX See Note [facility] Comment:NONE GIVEN SOURCE See Note [facility] Comment:Cervix, Endocervix STATEMENT OF ADEQUACY See Note [facility] Comment: Satisfactory for evaluation. Endocervical/transformation zone component present. INTERPRETATION/RESU LT See Note [facility] Comment: Cytology Results: Negative for intraepithelial lesion or malignancy. COMMENT See Note [facility] Comment: This Pap test has been evaluated with computer assisted technology. LINECASTING MACHINE KEYBOARD OPERATOR See Note [facility] Comment: MRC, CT(ASCP) CT screening location: [place] [address] REVIEW LINECASTING MACHINE KEYBOARD OPERATOR See Note [facility] Comment: RXB, CT(ASCP) CT screening location: [place] [address] COMMENT [facility] HPV MRNA E6/E7 Detected (A) Not Detected [facility] Comment: Methodology: Chemical Tank Worker-Mediated Amplification This assay detects E6/E7 viral messenger RNA (mRNA) from 14 high-risk HPV types (16,18,31,33,35,39,45,51,52,56,58,59,66,68). Cervical sources are required for HPV testing. If a vaginal source from a patient who has had a total hysterectomy with removal of cervix was submitted, please contact the testing laboratory for alternative testing options. For additional information, please refer to http://education.[employer]/faq/YLY372v4 (This link if provided for information/ educational purposes only.) Swab Endocervical structure / Unknown 08/05/2024 2:34 PM EDT 08/06/2024 8:53 PM EDT Narrative [facility] - 08/09/2024 12:09 AM EDT EXPLANATORY NOTE: [...] information. us Alice Gan PA-C LAB - PATHOLOGY AND CYTOLOGY AMBULATORY Final Result [facility] [address] [place] [address], [facility] [address] [phone] * REFERRAL FOR MAMMOGRAM SCREENING (03/04/2024 3:00 AM EDT) 03/04/2024 3:00 AM EDT us Alice Gan PA-C IMG RFL MAMMO Final Result * HIV-1 & HIV-2 ANTIBODIES (06/16/2020 4:01 PM EDT) [facility] HIV 1 AND 2 ANTIBODY SCREEN NEGATIVE NEGATIVE [facility] Comment: This assay is a 4th generation assay allowing for earlier detection of HIV infection by detecting the presence of the HIV-1 p24 antigen as well as the traditional antibodies to HIV type 1 (including group O) and type 2. Use of a 4th generation assay is the current CDC recommendation for HIV screening. Blood specimen (specimen) Blood / Unknown 06/16/2020 4:01 PM EDT 06/16/2020 6:[address] [facility] - 06/16/2020 8:13 PM EDT [facility], a member of [address] [address] [employer] Holder - Mary Curiel MD PT ID [id number] ORD# [id number] Alice Gan PA-C LAB - BLOOD DRAW Final Resul t Performing Organization Address City/[facility] Co de Phone Number [address] [address], * (ABNORMAL) HEPATITIS A,B,C PANEL (04/08/2016 11:13 AM EDT) HEPATITIS B SURFACE ANTIBODY POSITIVE(A) NEGATIVE [facility] HEPATITIS B SURFACE ANTIGEN NEGATIVE NEGATIVE [facility] HEPATITIS C VIRUS DIAGNOSTIC NEGATIVE NEGATIVE [facility] HEPATITIS A ANTIBODY TOTAL POSITIVE(A) NEGATIVE [facility] HEPATITIS B CORE ANTIBODY POSITIVE(A) NEGATIVE [facility] Blood specimen (specimen) Blood / Unknown 04/08/2016 11:13 AM EDT 04/08/2016 11:[address] [facility] - 04/08/2016 4:58 PM EDT [facility] [address] [place] [address] PT ID [id number] ORD# [id number] Siobhan EASTMAN LAB - BLOOD DRAW Edited Resul t - Final Performing Organization Address City/[facility] Co de Phone Number [address] [address], [place] [phone] from Last 3 Months or Most Recently Relevant to Health Maintenance Insurance [id number] [place] MEDICAID DENTAL [facility] Care Teams Community Youth Secretary Relationship Specialty Start Date End Date Alice Gan PA-C [address] [place] [address] PCP - General FAMILY MEDICINEGINETTE 05/20/20
== END 2025-05-13 10:51 | disposition home or self-care (01) ==
LOC: HO.HOS 10:31
PROVIDERS: PCP Physician Assistant Medical
DX: M24.549 Contracture, unspecified hand (principal); R20.0 Anesthesia of skin; R20.2 Paresthesia of skin
CPT/HCPCS: 99213

== ENCOUNTER → 2025-05-13 10:28 | Outpatient (BNVA) | payer MEDICAID, SELFPAY | PROVIDERS: PCP Physician Assistant Medical | DX: R20.0 Anesthesia of skin (principal); R20.2 Paresthesia of skin; M24.542 Contracture, left hand | CPT/HCPCS: 99212 ==

== ENCOUNTER 2025-09-10 10:33 | Outpatient (REF) | payer MEDICAID, SELFPAY ==
--- NOTE | 2025-09-10 10:36 | EMG_ITS ---
Chief complaint: Continues to have left hand pain and numbness EMG done by me 11/14/2024 bilateral upper extremity was normal. History of left carpal tunnel release more than 10 years ago Reason for referral: Evaluate for Carpal Tunnel Syndrome Referred by: Dung PENG Procedure done: Left upper extremity NCS/EMG Precautions and/or limitations: None The limb temperature was monitored continuously and remained between 32-36 degrees C during the performance of the NCS. Nerve Conduction Studies Anti Sensory Summary Table ?Stim Site NR Onset (ms) Norm Onset (ms) Peak (ms) Norm Peak (ms) O-P Amp (?V) Norm O-P Amp Site1 Site2 Delta-0 (ms) Dist (cm) Michael (m/s) Norm Michael (m/s) Left Median Anti Sensory (2nd Digit) Wrist ? 3.0 3.7 <3.6 19.8 >10 Wrist 2nd Digit 3.0 14.0 47 Left Ulnar Anti Sensory (5th Digit) Wrist ? 2.6 3.4 <3.7 23.2 >15.0 Wrist 5th Digit 2.6 14.0 54 Motor Summary Table ?Stim Site NR Onset (ms) Norm Onset (ms) O-P Amp (mV) Norm O-P Amp iAmp (mV) Amp (1st) (%) Site1 Site2 Delta-0 (ms) Dist (cm) Michael (m/s) Norm Michael (m/s) Left Median Motor (Abd Poll Brev) Wrist ? 4.6 <3.9 6.9 >4.5 7.9 100.0 Elbow Wrist 3.8 19.0 50 >45 Elbow ? 8.4 6.1 6.9 88.4 Left Median Motor Run #2 (Abd Poll Brev) Wrist ? 4.6 <3.9 7.0 >4.5 8.1 100.0 Elbow Wrist 3.9 19.5 50 >45 Elbow ? 8.5 6.0 6.9 85.7 Left Ulnar Motor (Abd Dig Minimi) Wrist ? 3.0 <3.0 7.8 >5 8.7 100.0 B Elbow Wrist 2.9 17.0 59 >45 B Elbow ? 5.9 6.8 7.6 87.2 A Elbow B Elbow 1.8 10.0 56 >45 A Elbow ? 7.7 6.2 6.8 79.5 Comparison Summary Table ?Stim Site NR Peak (ms) Norm Peak (ms) P-T Amp (?V) Site1 Site2 Delta-P (ms) Norm Delta (ms) Left Median/Radial Dig I Comparison (Digit 1 - 10cm) Median ? 3.3 <2.9 52.5 Median Radial 0.0 Radial ? 3.3 <2.8 39.3 EMG ?Side Muscle Nerve Root Ins Act Fibs Psw Amp Dur Poly Recrt Int Pat Comment Left 1stDorInt Ulnar C8-T1 Nml Nml Nml Nml Nml 0 Nml Complete Left FlexCarRad Median C6-7 Nml Nml Nml Nml Nml 0 Nml Complete Left Biceps Musculocut C5-6 Nml Nml Nml Nml Nml 0 Nml Complete Left Triceps Radial C6-7-8 Nml Nml Nml Nml Nml 0 Nml Complete Left Deltoid Axillary C5-6 Nml Nml Nml Nml Nml 0 Nml Complete Left Abd Poll Brev Median C8-T1 Nml Nml Nml Nml Nml 0 Nml Complete Paraspinal EMG ?Side Muscle Nerve Root Ins Act Fibs Psw Comment Left Cervical Upper Rami Nml Nml Nml Left Cervical Mid Rami Nml Nml Nml Left Cervical Lower Rami Nml Nml Nml FINDINGS: Left median motor nerve showed prolonged distal latency, normal amplitude and normal conduction velocity. Left median sensory nerve showed prolonged peak latency. All other nerves tested were within normal. Concentric needle EMG was performed in selected muscles of the value in cervical paraspinals. Study did not reveal signs of electric abnormalities as shown in the table above. IMPRESSION: 1. This is an abnormal study. 2. There is electrodiagnostic evidence for left moderate-severe median neuropathy at the wrist, consistent with carpal tunnel syndrome. 3. There is no electrodiagnostic evidence for ulnar neuropathy, brachial plexopathy, or cervical radiculopathy. CLINICAL COMMENT: Worsening noted since the EMG done 11/14/2024. Thank you for your kind referral. Nancie Marie MD, JUAN RAMON Board Certified, [place] Board of Physical Medicine and Rehabilitation (ABPMR) Board Certified, [place] Board of Electrodiagnostic Medicine (ABEM) [place] [id number] [facility]
--- OUTSIDE RECORDS SUMMARY | 2025-09-10 12:20 | XMS_ITS | Clinical Summary ---
Author Organization [facility] Address [address] [place] [address] Care Team Providers Care Pilot Plant Operator Name Role Phone Alice Gan PA-C Primary Care Provider + [phone] Source Comments PLEASE NOTE, if this patient [...] to wear daily 1 Each 9 Active metFORMIN (GLUCOPHAGE) 500 mg tabletIndication s:Prediabetes Take 1 Tablet by mouth once daily with breakfast. 90 Tablet 1 5 Active omeprazole (PRILOSEC) [address] Kylah ns:Gastroesophag eal reflux disease, unspecified whether esophagitis present Take 1 Capsule by mouth every morning before breakfast Do not crush or chew.. 90 Capsule 1 5 Active ibuprofen 600 mg tabletIndication s:Back spasm Take 1 Tablet by mouth 4 (four) times daily as needed for pain. 60 Tablet 5 Active mirtazapine (REMERON) 15 mg tabletIndication s:Trouble in sleeping Take 1 Tablet by mouth nightly at bedtime. 90 Tablet 1 5 Active Active Problems Problem Noted Date Diagnosed [...] ppi on occassion- did not re order- Encounters Date Type Department Care Team Description 09/04/2025 11:00 AM EDT Office Visit [facility] [address] [place] [phone] Dre Jackson DDS 08/19/2025 10:20 AM EDT Office Visit [facility] [address] [place] [phone] Dre Jackson DDS 08/07/2025 3:20 PM EDT Office Visit [facility] [address] [place] [phone] Dre Jackson DDS 08/04/2025 10:20 AM EDT Office Visit [facility] [address] [place] [phone] Dre Jackson DDS 07/15/2025 4:20 PM EDT Office Visit [facility] [id number] [place] [phone] Lola Mauro from Last 3 Months Immunizations Immunization Administration Dates Next Due Flu, [...] isolated from th ose around you? 1 06/05/2025 Financial Resource Strain Answer Date R ecorded Hard to pay for: Food 1 06/05/2025 Stress Answer Date Recorded Do you feel these kinds of stress these days? 1 06/05/2025 Physical Activity Answer Date Recorded Physical Activity 0 06/30/2019 Food Insecurity Answer Date Recorded Hard to pay for: Food 1 06/05/2025 Transportation Needs Answer Date Record ed Hard to pay for: Transportation 1 06/05/2025 Housing Stability Answer Date Recorded Think about the place you li ve. Do you have problems with any of the following? 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 Not on file Not on file Not on file Last Filed Vital Signs Vital Sign Reading Time Taken Comments Blood Pressure 147/93 08/07/2025 3:01 PM EDT Pulse 82 08/07/2025 3:01 PM EDT Temperature 36.6 C (97.8 F) 09/12/2024 10:54 AM EST Respiratory Rate 16 09/12/2024 10:54 AM EST Oxygen Saturation 97% 09/12/2024 10:54 AM EST Inhaled Oxygen Concentration - - Weight 59 kg (130 lb) 06/05/2025 1:22 PM EDT Height 152.4 cm (5') 06/05/2025 1:22 PM EDT Body Mass Index 25.39 06/05/2025 1:22 PM EDT Plan of Treatment Upcoming Encounters Date Type Department Care Team (Late st Contact Info) Description 09/23/2025 9:40 AM EST Office Visit [facility] [address] [place] [phone] Dre Jackson DDS [address] [place] [address] 09/25/2025 10:20 AM EST Office Visit [facility] [address] [place] [phone] Lola Mauro [address] [place] [address] Health Maintenance Due Date Last Done Comments HPV Screening (self-collect) [address] Colonography 2009 FIT/gFOBT 2009 Fecal DNA 2009 Flexible Sigmoidoscopy 2009 Breast Cancer Screening (Mammogram) 03/04/2025 03/04/2024, 03/04/2024, 03/04/2024, Additional history exists [id number] ( season) 2025 021, 01/09/2021 Imm-Influenza (#1) 2025 07/16/2024, 09/21/2020 Annual Wellness (Adult): Indicated (All Coverage) 08/05/2025 08/05/2024, 07/16/2024, 09/21/2020 Cervical Cancer Screening 08/05/2025 Pap + HPV 08/05/2025 08/05/2024, 09/02/2015 Tobacco Cessation Counseling (#1) 09/12/2025 Anxiety Screening 06/05/2026 06/05/2025 Diabetes Screening 06/20/2026 06/20/2025, 0 06/20/2025, 09/12/2024, Additional history exists Dental BW 07/17/2026 07/15/2025, 07/08, 11/02/2023 Dental Examination 07/17/2026 07/15/2025, 0 07/30/2024, 11/02/2023 Dental Perio Charting 07/17/2026 07/15/2025, 023 Dental Prophy 07/17/2026 07/15/2025, 07/08, 11/02/2023 Colonoscopy 07/26/2026 07/26/2016 Colorectal Cancer Screening 07/26/2026 Hypertension Screening (#1) 08/07/2026 Pap Smear 08/05/2027 08/05/2024, 09/22/2020 Dental FMX/Pano 11/04/2028 11/02/2023 Imm-DTaP/Tdap/Td (2 - Td or Tdap) 06/16/2030 020 Lipid Screening 06/20/2030 06/20/2025, 11/0 05/2024, 02/13/2024, Additional history exists Hepatitis C Screening Completed 04/08/2016 HIV Screening Completed 06/16/2020, 04/08/2016 Imm-Zoster, Recombinant Completed 09/21/2020, 06/16 Imm-Pneumococcal 50+ Completed 07/16/2024, 09/21/20 HPV Genotyping Discontinued 08/05/2024 Alcohol and Drug Screen Completed 06/05/20 25, 07/16/2024, 02/13/2024, Additional history exists Depression Annual Screen Completed 06/05/2025 Cervical Ablation/Cold-Knife Conization Discontinued Cervical Cryotherapy Discontinued Colposcopy Discontinued Excision/Leep Discontinued Vaginal Pap Discontinued Vulvoscopy Discontinued Procedures Procedure Name Priority Date/Time Associated Diagnosis Comments COMPLETE DENTURE - IN PROCESS Routine 09/04/2025 11:00 AM EDT Encounter for fitting and adjustment of dental prosthetic device REMOVABLE PARTIAL DENTURE - IN PROCESS Routine 08/19/2025 10:20 AM EDT Partial edentulism, unspecified edentulism class REMOVABLE PARTIAL DENTURE - IN PROCESS Routine 08/07/2025 3:20 PM EDT Encounter for dental examination FINAL IMPRESSION - RPD Routine 08/04/2025 10:20 AM EDT Encounter for dental examination INTRAORAL - PERIAPICAL EACH ADD RADIOGRAPH IMAGE Routine 07/15/2025 4:20 PM EDT Encounter for dental examination and cleaning with abnormal findings 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 periodontitis per AAP/EFP 2017 classification INTRAORAL - PERIAPICAL FIRST RADIOGRAPHIC IMAGE Routine 07/15/2025 4:20 PM EDT Encounter for dental examination and cleaning with abnormal findings 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 periodontitis per AAP/EFP 2017 classification PERIODIC ORAL EVALUATION ESTABLISHED PATIENT Routine 07/15/2025 4:20 PM EDT Encounter for dental examination and cleaning with abnormal findings 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 periodontitis per AAP/EFP 2017 classification DENTAL CASE MANAGEMENT - MOTIVATIONAL INTV Routine 07/15/2025 4:20 PM EDT Encounter for dental examination and cleaning with abnormal findings 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 periodontitis per AAP/EFP 2017 classification PROPHYLAXIS - ADULT Routine 07/15/2025 4 :20 PM EDT Encounter for dental examination and cleaning with abnormal findings 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 periodontitis per AAP/EFP 2017 classification COMP PERIODONTAL EVALUATION - NEW/EST PATIENT Routine 07/15/2025 4:20 PM EDT Encounter for dental examination and cleaning with abnormal findings 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 periodontitis per AAP/EFP 2017 classification BITEWINGS - FOUR RADIOGRAPHIC IMAGES Routine 07/15/2025 4:20 PM EDT Encounter for dental examination and cleaning with abnormal findings 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 periodontitis per AAP/EFP 2017 classification CARIES RISK ASSESSMENT & DOC FINDING HIGH RISK Routine 07/15/2025 4:20 PM EDT Encounter for dental examination and cleaning with abnormal findings 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 periodontitis per AAP/EFP 2017 classification NUTRITIONAL COUNSELING CONTROL OF DENTAL DISEASE Routine 07/15/2025 4:20 PM EDT Encounter for dental examination and cleaning with abnormal findings 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 periodontitis per AAP/EFP 2017 classification ORAL HYGIENE INSTRUCTIONS Routine 07/15/2025 4:20 PM EDT Encounter for dental examination and cleaning with abnormal findings 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 periodontitis per AAP/EFP 2017 classification ORAL CANCER SCREENING Routine 07/15/2025 4:20 PM EDT Encounter for dental examination and cleaning with abnormal findings 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 periodontitis per AAP/EFP 2017 classification CASE PRESENTATION SUBS DTL & EXTENSIVE TX PLN Routine 07/15/2025 4:20 PM EDT Encounter for dental examination and cleaning with abnormal findings OTHER ORDERS SCANNED DOCUMENT 07/04/2025 3:00 AM EDT LIPID PANEL Routine 06/20/2025 8:57 AM EDT Prediabetes HEMOGLOBIN GLYCOSYLATED A1C Routine 06/20/2025 8:57 AM EDT Prediabetes COMPREHENSIVE METABOLIC PANEL Routine 06/20/2025 8:57 AM EDT Prediabetes BLOOD COUNT COMPLETE AUTO&AUTO DIFRNTL WBC Routine 06/20/2025 8:57 AM EDT Prediabetes HPV KUN 16/18 + 45 Routine 08/05/2024 2 :34 PM EDT Pap smear, as part of routine gynecological examination THIN PREP IMAGE PAP + HPV RNA E6/E7 W/RFLX HPV 16, 18/45 Routine 08/05/2024 2:34 PM EDT Pap smear, as part of routine gynecological examination Cervical cancer screening REFERRAL FOR MAMMOGRAM Routine 03/04/2024 3:00 AM EDT Breast cancer screening by mammogram INTRAORAL - COMP SERIES OF RADIOGRAPHIC IMAGES [...] Maintenance Results * OTHER ORDERS SCANNED DOCUMENT (07/04/2025 3:00 AM EDT) 07/04/2025 3:00 AM EDT Alice Gan PA-C SCAN OTHER ORDERS Final Resu lt * (ABNORMAL) BLOOD COUNT COMPLETE AUTO&AUTO DIFRNTL WBC Routine (06/20/2025 8:57 AM EDT) Pathologist [facility] WHITE BLOOD CELL COUNT 8.4 3.8 - 10.8 Thousand/ uL 06/21/2025 4:11 AM EDT [facility] RED BLOOD CELL COUNT 4.83 3.80 - 5.10 Million/u L 06/21/2025 4:11 AM EDT [facility] HEMOGLOBIN 14.0 11.7 - 15.5 g/dL 06/21/2025 4:11 AM [employer] HEMATOCRIT 46.5(H) 35.0 - 45.0 % 06/21/2025 4:11 AM [facility] MCV 96.3 80.0 - 100.0 fL 06/21/2025 4:11 AM [facility] MCH 29.0 27.0 - 33.0 pg 06/21/2025 4:11 AM [employer] [facility] MCHC 30.1(L) 32.0 - 36.0 g/dL 06/21/2025 4:11 AM [facility]athalEyes [facility] RDW 14.5 11.0 - 15.0 % 06/21/2025 4:11 AM [employer] [facility] PLATELET COUNT 371 140 - 400 Thousand/ uL 06/21/2025 4:11 AM [employer] [facility] MPV 10.1 7.5 - 12.5 fL 06/21/2025 4:11 AM [employer] [facility] ABSOLUTE NEUTROPHILS 4,066 1,500 - 7,800 cells/uL 06/21/2025 4:11 AM [employer] [facility] ABSOLUTE LYMPHOCYTES 3,478 850 - 3,900 cells/uL 06/21/2025 4:11 AM [employer] [facility] ABSOLUTE MONOCYTES 588 200 - 950 cells/uL 06/21/2025 4:11 AM [employer] [facility] ABSOLUTE EOSINOPHILS 227 15 - 500 cells/uL 06/21/2025 4:11 AM [employer] [facility] ABSOLUTE BASOPHILS 42 0 - 200 cells/uL 06/21/2025 4:11 AM [employer] [facility] NEUTROPHILS PCT 48.4 % 4:11 AM [employer] [facility] LYMPHOCYTES 41.4 % 06/21/2025 4:11 AM [employer] [facility] MONOCYTES 7.0 % 06/21/2025 4:11 AM [employer] [facility] EOSINOPHILS 2.7 % 06/21/2025 4:11 AM [employer] [facility] BASOPHILS 0.5 % 06/21/2025 4:11 AM [employer] [facility] Blood Blood / Unknown 06/20/2025 8 :57 AM EDT 06/21/2025 3:37 AM EDT [employer] - 06/21/2025 4:13 AM EDT FASTING:YES For adults, a slight decrease in the calculated MCHC value (in the range of 30 to 32 g/dL) is most likely not clinically significant; however, it should be interpreted with caution in correlation with other red cell parameters and the patient's clinical condition. [employer] Nickolasshannon Gan PA-C LAB - BLOOD DRAW Final Resul t Performing Organization Address [facility] de Phone Number [employer] [address] [place] [phone], [employer] [address] [phone] * (ABNORMAL) HEMOGLOBIN GLYCOSYLATED A1C Routine (06/20/2025 8:57 AM EDT) HEMOGLOBIN A1C 6.4(H) <5.7 % 06/21/2025 6:17 AM EDT [facility] Blood Blood / Unknown 06/20/2025 8 :57 AM EDT 06/21/2025 3:37 AM EDT Narrative [employer] - 06/21/2025 6:44 AM EDT FASTING:YES For someone without known diabetes, a hemoglobin A1c value between 5.7% and 6.4% is consistent with prediabetes and should be confirmed with a follow-up test. . For someone with known diabetes, a value <7% indicates that their diabetes is well controlled. A1c targets should be individualized based on duration of diabetes, age, comorbid conditions, and other considerations. . This assay result is consistent with an increased risk of diabetes. . Currently, no consensus exists regarding use of hemoglobin A1c for diagnosis of diabetes for children. . [employer] Celinaadsquareshannon Gna PA-C LAB - BLOOD DRAW Final Resul t Performing Organization Address [facility] Co de Phone Number [employer] [address] [place] [address], [employer] [address] [place] [phone] * (ABNORMAL) LIPID PANEL Routine (06/20/2025 8:57 AM EDT) CHOLESTEROL, TOTAL 243(H) <200 mg/dL 06/21/2025 4:19 PM EDT [facility] HDL CHOLESTEROL 55 > OR = 50 mg/dL 06/21/2025 4:19 PM EDT [facility] TRIGLYCERIDES 265(H) <150 mg/dL 06/21/2025 4:19 PM EDT [facility] LDL-CHOLESTEROL 147(H) mg/dL (calc) 06/21/2025 4:19 PM EDT [facility] CHOL/HDLC RATIO 4.4 <5.0 (calc) 06/21/2025 4:19 PM EDT [facility] NON-HDL CHOLESTEROL 188(H) <130 mg/dL (calc) 06/21/2025 4:19 PM EDT [facility] Blood Blood / Unknown 06/20/2025 8 :57 AM EDT 06/21/2025 7:15 AM EDT Narrative [employer] [facility] - 06/21/2025 4:19 PM EDT FASTING:YES . If a non-fasting specimen was collected, consider repeat triglyceride testing on a fasting specimen if clinically indicated. Galo et al. J. of Clin. Lipidol. 2015;9:129-169. . Reference range: <100 . Desirable range <100 mg/dL for primary prevention; <70 mg/dL for patients with CHD or diabetic patients with > or = 2 CHD risk factors. . LDL-C is now calculated using the Kash-Maite calculation, which is a validated novel method providing better accuracy than the Friedewald equation in the estimation of LDL-C. Kash SS et al. SHANAE. 2013;310(19): 0088-4266 (http://education.Panjo.Archive Systems/faq/UOL839) For patients with diabetes plus 1 major ASCVD risk factor, treating to a non-HDL-C goal of <100 mg/dL (LDL-C of <70 mg/dL) is considered a therapeutic option. us Alice Gan PA-C LAB - BLOOD DRAW Final Resul t [facility] [address] [address], [facility] [address] [phone] * (ABNORMAL) COMPREHENSIVE METABOLIC PANEL Routine (06/20/2025 8:57 AM EDT) GLUCOSE 116(H) 65 - 99 mg/dL 06/21/2025 4:19 PM [employer] [facility] UREA NITROGEN (BUN) 19 7 - 25 mg/dL 06/21/2025 4:19 PM [employer] [facility] CREATININE (blood) 0.65 0.50 - 1.05 mg/dL 06/21/2025 4:19 PM [employer] [facility] EGFR 101 > OR = 60 mL/min/1. 73m2 06/21/2025 4:19 PM [employer] [facility] BUN/CREATININE RATIO SEE NOTE: 6 - 22 (calc) 06/21/2025 4:19 PM [employer] [facility] SODIUM 143 135 - 146 mmol/L 06/21/2025 4:19 PM [employer] [facility] POTASSIUM 4.3 3.5 - 5.3 mmol/L 06/21/2025 4:19 PM [employer] [facility] CHLORIDE 108 98 - 110 mmol/L 06/21/2025 4:19 PM [employer] [facility] CARBON DIOXIDE 26 20 - 32 mmol/L 06/21/2025 4:19 PM [employer] [facility] CALCIUM 10.0 8.6 - 10.4 mg/dL 06/21/2025 4:19 PM [employer] [facility] PROTEIN, TOTAL 6.8 6.1 - 8.1 g/dL 06/21/2025 4:19 PM [employer] [facility] ALBUMIN 4.1 3.6 - 5.1 g/dL 06/21/2025 4:19 PM [employer] [facility] GLOBULIN 2.7 1.9 - 3.7 g/dL (calc) 06/21/2025 4:19 PM [facility] [employer] [facility] ALBUMIN/GLOBULI N RATIO 1.5 1.0 - 2.5 (calc) 06/21/2025 4:19 PM [employer] [facility] BILIRUBIN, TOTAL 0.2 0.2 - 1.2 mg/dL 06/21/2025 4:19 PM [employer] [facility] ALKALINE PHOSPHATASE 73 37 - 153 U/L 06/21/2025 4:19 PM [employer] [facility] AST 12 10 - 35 U/L 06/21/2025 4:19 PM EDT [facility] ALT 17 6 - 29 U/L 06/21/2025 4:19 PM EDT [facility] Blood Blood / Unknown 06/20/2025 8 :57 AM EDT 06/21/2025 7:15 AM EDT Narrative [facility] - 06/21/2025 4:19 PM EDT FASTING:YES . Fasting reference interval . For someone without known diabetes, a glucose value between 100 and 125 mg/dL is consistent with prediabetes and should be confirmed with a follow-up test. . Not Reported: BUN and Creatinine are within reference range. . us Alice Gan PA-C LAB - BLOOD DRAW Final Resul t Performing Organization Address City/[facility]/ZIP Co de Phone Number [facility] [address] [address], [employer] [address] [phone] * HPV KUN 16/18 + 45 (08/05/2024 2:34 PM EDT) [facility] HPV 16 RNA NOT DETECTED NOT DETECTED [facility] HPV 18/45 RNA NOT DETECTED NOT DETECTED [facility] Comment: Methodology: Ticketing Agent Mediated Amplification Cervical sources are required for HPV testing. If a vaginal source from a patient who has had a total hysterectomy with removal of cervix was submitted, please contact the testing laboratory for alternative testing options. 08/05/2024 2:34 PM EDT 08/06/2024 8:53 PM EDT us Alice Gan PA-C LAB - PATHOLOGY AND CYTOLOGY AMBULATORY Final Result Performing Organization Address City/[facility]/ZIP Co de Phone Number [facility] [address] [address], [employer] [address] [phone] * (ABNORMAL) THIN PREP IMAGE PAP + HPV RNA E6/E7 W/RFLX HPV 16, 18/45 (08/05/2024 2:34 PM EDT) CLINICAL INFORMATION See Note [facility] Comment: Routine exam Postmenopausal LMP See Note [facility] Comment:NONE GIVEN PREV. PAP [facility] PREV. BX See Note [facility] Comment:NONE GIVEN SOURCE See Note [employer] Comment:Cervix, Endocervix STATEMENT OF ADEQUACY See Note [facility] Comment: Satisfactory for evaluation. Endocervical/transformation zone component present. INTERPRETATION/RESU LT See Note [employer] Comment: Cytology Results: Negative for intraepithelial lesion or malignancy. COMMENT See Note [employer] Comment: This Pap test has been evaluated with computer assisted technology. REGISTRATION COORDINATOR See Note [employer] [facility] Comment: MRC, CT(ASCP) CT screening location: [place] [address] REVIEW REGISTRATION COORDINATOR See Note [facility] Comment: RXB, CT(ASCP) CT screening location: [place] [address] COMMENT [facility] HPV MRNA E6/E7 Detected (A) Not Detected [facility] Comment: Methodology: Ticketing Agent-Mediated Amplification This assay detects E6/E7 viral messenger RNA (mRNA) from 14 high-risk HPV types (16,18,31,33,35,39,45,51,52,56,58,59,66,68). Cervical sources are required for HPV testing. If a vaginal source from a patient who has had a total hysterectomy with removal of cervix was submitted, please contact the testing laboratory for alternative testing options. For additional information, please refer to http://education.kissnofrog/faq/GLV651j2 (This link if provided for information/ educational purposes only.) Swab Endocervical structure / Unknown 08/05/2024 2:34 PM EDT 08/06/2024 8:53 PM EDT Narrative [employer] [facility] - 08/09/2024 12:09 AM EDT EXPLANATORY [...] - PATHOLOGY AND CYTOLOGY AMBULATORY Final Result [facility] [address] [address], [facility] [address] [place] [address] * REFERRAL FOR MAMMOGRAM SCREENING (03/04/2024 3:00 AM EDT) 03/04/2024 3:00 AM EDT us Alice Gan PA-C IMG RFL MAMMO Final Result * HIV-1 & HIV-2 ANTIBODIES (06/16/2020 4:01 PM EDT) Pathologist [facility] HIV 1 AND 2 ANTIBODY SCREEN NEGATIVE [facility]GAT[facility] Comment: This assay is a 4th generation [...] PM EDT 06/16/2020 6:35 PM EDT Narrative [facility] - 06/16/2020 8:13 PM EDT [employer], [place] [address] Tower Equipment Repairer - Mary Curiel MD PT ID [id number] ORD# [id number] us Alice Gan PA-C LAB - BLOOD DRAW Final Resul t [address] [address], * (ABNORMAL) HEPATITIS A,B,C PANEL (04/08/2016 11:13 AM EDT) HEPATITIS B SURFACE ANTIBODY POSITIVE(A) NEGATIVE [facility] HEPATITIS B SURFACE ANTIGEN NEGATIVE NEGATIVE [facility] HEPATITIS C VIRUS DIAGNOSTIC NEGATIVE NEGATIVE [facility] HEPATITIS A ANTIBODY TOTAL POSITIVE(A) NEGATIVE [facility] HEPATITIS B CORE ANTIBODY POSITIVE(A) NEGATIVE [facility] Blood specimen (specimen) Blood / Unknown 04/08/2016 11:13 AM EDT 04/08/2016 11:29 AM EDT Narrative [facility] - 04/08/2016 4:58 PM EDT [facility] [employer] [address] [place] [address] PT ID [id number] ORD# [id number] us Siobhan [facility] LAB - BLOOD DRAW Edited Resul t - Final [facility] [address] [place] [address], [place] [phone] from Last 3 Months or Most Recently Relevant to Health Maintenance Insurance [address] [place] MEDICAID DENTAL [facility] [employer] Care Teams 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
== END 2025-09-10 10:34 | disposition home or self-care (01) ==
LOC: HO.NEURO 10:33
DX: R20.0 Anesthesia of skin (principal); R20.2 Paresthesia of skin; M79.642 Pain in left hand
CPT/HCPCS: 95886; 95909

== ENCOUNTER → 2025-09-10 10:36 | Outpatient (BNV) | payer MEDICAID, SELFPAY | PROVIDERS: Visit Provider Physical Medicine & Rehabilitation | DX: G56.12 Other lesions of median nerve, left upper limb (principal) | CPT/HCPCS: 95886; 95909 ==

== ENCOUNTER 2025-09-19 10:42 | Outpatient (AMB) | payer MEDICAID, SELFPAY ==
[2025-09-19 10:46] VITALS: BMI 23.6
--- NOTE | 2025-09-19 10:46 | MHC.OFFVIS ---
Vital Signs 09/19/25 10:46 Height 5 ft 2 in Weight 129 lb BMI 23.6 Intake Visit Reasons: OV - Bilateral Hand EMG Review Intake Note: Sonali is a 60 year old left hand dominant female who presents today for a Bilateral Hand EMG review. EMG was completed on 09/10/25. Patient complains of worsening left hand hand numbness and tingling. She explains her symptoms are daily, constant. She takes sleeping medications so she is unsure if the numbness wakes her up. Patient reports history of Pre-diabetes. She is unsure about her A1C. IMPRESSION: 1. This is an abnormal study. 2. There is electrodiagnostic evidence for left moderate-severe median neuropathy at the wrist, consistent with carpal tunnel syndrome. 3. There is no electrodiagnostic evidence for ulnar neuropathy, brachial plexopathy, or cervical radiculopathy. 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 EMG was completed on 09/10/25. Patient complains of worsening left hand hand numbness and tingling. She explains her symptoms are daily, constant. She takes sleeping medications so she is unsure if the numbness wakes her up. Patient reports history of Pre-diabetes. She is unsure about her A1C. The patient does state that she does have a history of left carpal tunnel release, in a proximally 2011, and is very surprised that this has recurred. Patient does state that she is not enthusiastic about the prospect of surgery. IMPRESSION: 1. This is an abnormal study. 2. There is electrodiagnostic evidence for left moderate-severe median neuropathy at the wrist, consistent with carpal tunnel syndrome. 3. There is no electrodiagnostic evidence for ulnar neuropathy, brachial plexopathy, or cervical radiculopathy. [facility] Social History Alcohol intake: current Alcohol intake frequency: holidays/special occasions only Patient Tobacco Use Status: Current everyday Tobacco user Tobacco use type: Cigarette Current occupational status: unemployed Current occupation: left hand dominant Review of Systems Const All systems reviewed & are unremarkable except as noted in HPI and below Physical Exam Vital Signs: BMI result Body Mass Index 23.6 Extrem Other: Neuro: Decreased sensation in all digits of the left hand at this time Patient reports normal sensation of the tips of all digits of the right hand at this time No thenar or intrinsic wasting. Good APB muscle firing We can finger cross on the left when compared to the right Vascular: Capillary refill brisk. ROM: Patient can make a fist Patient is unable to actively extend the left small finger at the PIP joint, with a resting extensor lag of approximately 30 degrees Patient is able to be passively extended fully without difficulty Skin: No lacerations or abrasions noted. General: No ecchymosis. No erythema or evidence of infection. Assessment & Plan Assessment & Plan (1) Left carpal tunnel syndrome: Code(s): G56.02 - Carpal tunnel syndrome, left upper limb Category: Medical Plan 1. Left carpal tunnel syndrome Symptoms intermittent, daily, worse at night I educated the patient about the condition. I discussed both operative and nonoperative treatment options. The risks and benefits of operative treatment were discussed with the patient and the patient wishes to proceed with surgery. These risks include, but are not limited to, risk of damage to blood vessels, nerves, tendons, infection, recurrence, incomplete relief of preoperative symptoms, persistent pain, possible need for further surgery, and the risks associated with regional blocks and/or anesthesia. Patient would like to have some time to think about potential surgical intervention prior to registering for surgery Patient states she would like to wait until January or February at least to potentially book surgical intervention Patient will call us with her final decision, we will need to obtain her most recent labs from [facility] prior to booking surgery Patient understands this and is amenable to this plan Of note, the patient does ask if I can fill out disability paperwork for the next 6 months for her carpal tunnel syndrome, and I informed her that there is no indication to be fully out of work for carpal tunnel syndrome, but I would be happy to provide weight restrictions for her to return to work. Patient declines this option. Follow-up when she makes her decision, sooner with any acute concerns Coding Level of Care Code Est Pt Level 3 (31699) Diagnoses Left carpal tunnel syndrome G56.02
== END 2025-09-19 11:27 | disposition home or self-care (01) ==
LOC: HO.HOS 10:42
DX: G56.02 Carpal tunnel syndrome, left upper limb (principal)
CPT/HCPCS: 99213

== ENCOUNTER → 2025-09-19 10:42 | Outpatient (BNVA) | payer MEDICAID, SELFPAY | DX: Z71.2 Person consulting for explanation of examination or test findings (principal); G56.02 Carpal tunnel syndrome, left upper limb | CPT/HCPCS: 99212 ==